=== PATIENT | male | born 1990 | race African-American/Black ===

== ENCOUNTER 2017-03-08 10:45 | Emergency (ER) | payer SELFPAY ==
[~2017-03-08] VITALS: Ht 180.3 cm; Wt 72.5 kg
[~2017-03-08 10:45] MED LIST: ALBU17I INH; ALBU6.7H INH; DOXY100T PO; PRED20 PO
[2017-03-08 10:46] VITALS: BP 149/88; PULSE 66; RESP 16; TEMP 98.7; O2SAT 100
[2017-03-08] MEDS ORDERED: ROBA500T PO (11:12)
[2017-03-08] MEDS ORDERED: IBUP800T23 PO (11:12)
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
[2017-03-08] MEDS ORDERED: METHOCARBAMOL 500 MG TAB PO ONE (11:15)
[2017-03-08] MEDS ORDERED: IBUPROFEN 800 MG TAB PO ONE (11:15)
== END 2017-03-08 11:56 | disposition home or self-care (01) ==
LOC: NEPK 10:45
DX: S39.012A Strain of muscle, fascia and tendon of lower back, initial encounter (principal); J45.909 Unspecified asthma, uncomplicated; Z72.0 Tobacco use; V43.62XA Car passenger injured in collision with other type car in traffic accident, initial encounter
CPT/HCPCS: 99283